=== PATIENT | female | born 1965 | race Caucasian/White ===

== ENCOUNTER → 2016-08-28 | Outpatient (CLI) | payer BC, OTHER ==
[2016-08-28 12:37] LABS: FREE T4 1.27 NG/DL (0.76-1.46)
== END ==
LOC: M LAB 11:03
PROVIDERS: ATTEND Internal Medicine Endocrinology, Diabetes & Metabolism
DX: E89.0 Postprocedural hypothyroidism (principal)

== ENCOUNTER → 2017-08-07 | Outpatient (CLI) | payer BC, OTHER ==
[2017-08-07 15:18] LABS: THYROID STIMULATING HORMONE < 0.005 uIU/ML (0.358-3.740)
[2017-08-07 15:23] LABS: FREE T4 2.61 NG/DL (0.76-1.46)
== END ==
LOC: M LAB 13:55
DX: E89.0 Postprocedural hypothyroidism (principal)
CPT/HCPCS: 84443

== ENCOUNTER → 2017-10-21 | Outpatient (CLI) | payer BC, OTHER ==
[2017-10-21 12:32] LABS: FREE T4 1.32 NG/DL (0.76-1.46); THYROID STIMULATING HORMONE 0.041 uIU/ML (0.358-3.740)
== END ==
LOC: M LAB 11:14
DX: E89.0 Postprocedural hypothyroidism (principal)
CPT/HCPCS: 84443

== ENCOUNTER → 2018-04-17 | Outpatient (REF) | payer OTHER ==
[2018-04-17 16:47] LABS: FREE T4 1.48 NG/DL (0.76-1.46); THYROID STIMULATING HORMONE 0.052 uIU/ML (0.358-3.740)
== END ==
LOC: M LABDRAW1 15:55
DX: E89.0 Postprocedural hypothyroidism (principal)

== ENCOUNTER → 2018-10-14 | Outpatient (CLI) | payer BC, OTHER ==
[~2018-10-14] MED LIST: LEVO2TA PO
[2018-10-14 16:23] LABS: FREE T4 1.19 NG/DL (0.76-1.46); THYROID STIMULATING HORMONE 0.314 uIU/ML (0.358-3.740)
== END ==
LOC: M LAB 15:08
PROVIDERS: ATTEND Internal Medicine Endocrinology, Diabetes & Metabolism
DX: E89.0 Postprocedural hypothyroidism (principal)

== ENCOUNTER → 2019-11-08 | Outpatient (REF) | payer OTHER | LOC: M LABDRWAD 17:08 | PROVIDERS: ATTEND Internal Medicine Endocrinology, Diabetes & Metabolism | DX: E89.0 Postprocedural hypothyroidism (principal) ==

== ENCOUNTER → 2020-01-31 | Outpatient (REF) | payer OTHER ==
[2020-02-01 16:02] LABS: FREE T4 1.11 NG/DL (0.76-1.46); THYROID STIMULATING HORMONE 1.09 uIU/ML (0.358-3.740)
== END ==
LOC: M LABDRWAD 15:45
PROVIDERS: ATTEND Nurse Practitioner Family
DX: E89.0 Postprocedural hypothyroidism (principal)

== ENCOUNTER → 2021-03-27 | Outpatient (CLI) | payer BC, OTHER | LOC: M LAB 13:27 | PROVIDERS: ATTEND Internal Medicine Endocrinology, Diabetes & Metabolism | DX: E89.0 Postprocedural hypothyroidism (principal) ==

== ENCOUNTER → 2022-03-19 | Outpatient (CLI) | payer BC, OTHER ==
[2022-03-19 11:59] LABS: FREE T4 0.89 NG/DL (0.76-1.46); THYROID STIMULATING HORMONE 5.97 uIU/ML (0.358-3.740)
== END ==
LOC: M LAB 10:34
PROVIDERS: ATTEND Nurse Practitioner Family
DX: E89.0 Postprocedural hypothyroidism (principal)

== ENCOUNTER → 2022-06-21 | Outpatient (CLI) | payer BC, OTHER ==
[2022-06-21 09:54] LABS: FREE T4 1.47 NG/DL (0.89-1.76)
[2022-06-21 09:55] LABS: THYROID STIMULATING HORMONE 2.149 uIU/ML (0.55-4.78)
== END ==
LOC: M LAB 08:21
PROVIDERS: ATTEND Internal Medicine Endocrinology, Diabetes & Metabolism
DX: E89.0 Postprocedural hypothyroidism (principal)

== ENCOUNTER → 2023-06-19 | Outpatient (CLI) | payer BC, OTHER | LOC: M WHC 15:07 | PROVIDERS: ATTEND Registered Nurse | DX: Z12.31 Encounter for screening mammogram for malignant neoplasm of breast (principal) ==

== ENCOUNTER → 2023-06-26 | Outpatient (CLI) | payer BC, OTHER ==
[2023-06-26 08:30] LABS: BASO # 0.1 10^3/uL (0.0-0.2); BASO % 0.9 % (0.0-1.0); EOS # 0.1 10^3/uL (0.0-0.5); EOS % 1.9 % (0.0-3.0); HEMATOCRIT 39.1 % (36.0-47.0); HEMOGLOBIN 13.1 g/dl (12.0-15.5); LYMPH # 2.2 10^3/uL (1.5-5.0); LYMPH % 32.4 % (24.0-44.0); MEAN CORPUSCULAR HEMOGLOBIN 31.9 pg (27.0-33.0); MEAN CORPUSCULAR HGB CONC 33.5 g/dl (32.0-36.5); MEAN CORPUSCULAR VOLUME 95.1 fl (80.0-96.0); MONO # 0.6 10^3/uL (0.0-0.8); MONO % 8.2 % (2.0-8.0); NEUTROPHILS # 3.9 10^3/uL (1.5-8.5); NEUTROPHILS % 56.3 % (36.0-66.0); PLATELET COUNT, AUTOMATED 364 10^3/uL (150-450); RED BLOOD COUNT 4.11 10^6/uL (4.00-5.40); WHITE BLOOD COUNT 6.9 10^3/uL (4.0-10.0)
[2023-06-26 08:55] LABS: ALKALINE PHOSPHATASE 41 U/L (46-116); ALT/SGPT 11 U/L (7.0-40); AST/SGOT 10 U/L (<34); BILIRUBIN,TOTAL 0.6 MG/DL (0.3-1.2); BLOOD UREA NITROGEN 8 MG/DL (9-23); CALCIUM LEVEL 9.4 MG/DL (8.5-10.1); CARBON DIOXIDE LEVEL 27 MMOL/L (20-31); CHLORIDE LEVEL 104 MMOL/L (98-107); CHOLESTEROL LEVEL 241 MG/DL (<200); CHOLESTEROL RISK RATIO 1.95 (<5); CREATININE FOR GFR 0.56 MG/DL (0.55-1.30); GLOMERULAR FILTRATION RATE > 60.0 (>51); GLUCOSE, FASTING 94 MG/DL (60-100); HDL CHOLESTEROL 123.3 MG/DL (>40); LDL CHOLESTEROL 109.3 MG/DL (<100); NON-HDL-C 117.7 MG/DL; SODIUM LEVEL 136 MMOL/L (136-145); TOTAL PROTEIN 7.4 G/DL (5.7-8.2); TRIGLYCERIDES LEVEL 42 MG/DL (<150)
[2023-06-26 08:57] LABS: FREE T4 1.36 NG/DL (0.89-1.76); THYROID STIMULATING HORMONE 5.278 uIU/ML (0.55-4.78)
== END ==
LOC: M LAB 07:32
PROVIDERS: ATTEND Registered Nurse
DX: Z00.00 Encounter for general adult medical examination without abnormal findings (principal); E03.9 Hypothyroidism, unspecified

== ENCOUNTER → 2023-09-26 | Outpatient (CLI) | payer BC ==
[2023-09-26 09:39] LABS: FREE T4 1.42 NG/DL (0.89-1.76); THYROID STIMULATING HORMONE 2.394 uIU/ML (0.55-4.78)
== END ==
LOC: M LAB 08:08
PROVIDERS: ATTEND Registered Nurse
DX: E03.9 Hypothyroidism, unspecified (principal)

== ENCOUNTER → 2024-06-22 | Outpatient (CLI) | payer BC ==
[2024-06-22 12:19] LABS: FREE T4 1.36 NG/DL (0.89-1.76); THYROID STIMULATING HORMONE 3.739 uIU/ML (0.55-4.78)
== END ==
LOC: M LAB 11:19
PROVIDERS: ATTEND Registered Nurse
DX: E03.9 Hypothyroidism, unspecified (principal)

== ENCOUNTER → 2024-10-03 | Outpatient (REF) | payer BC | LOC: M LAB REF 18:48 | PROVIDERS: ATTEND Physician Assistant Medical | DX: B34.9 Viral infection, unspecified (principal) ==